=== PATIENT | male | born 1935 | race Asian ===

== ENCOUNTER 2017-07-07 11:58 | Outpatient (CLI) | payer OTHER | END 2017-07-07 13:00 | disposition home or self-care (01) | LOC: RAD 11:58 | DX: R06.02 Shortness of breath (principal) ==

== ENCOUNTER 2017-11-08 00:41 | Outpatient (CLI) | payer OTHER ==
[2017-11-09] MEDS ORDERED: GLIP10TA55 PO (01:32)
[2017-11-09] MEDS ORDERED: METFORMIN HCL500 M1 PO (01:32)
[2017-11-09] MEDS ORDERED: PRINIVIL10 MG PO (01:33)
[2017-11-09] MEDS ORDERED: SIMV20TA2 PO (01:33)
== END 2017-11-08 00:51 | disposition short-term general hospital (02) ==
LOC: AMB 00:41
DX: R07.89 Other chest pain (principal)
CPT/HCPCS: A0425; A0427

== ENCOUNTER 2017-11-09 01:02 | Observation (INO) | payer OTHER ==
[~2017-11-09] VITALS: Ht 175.3 cm; Wt 74.6 kg
[2017-11-09 00:58] VITALS: BP 160/72; TEMP 97.7
[2017-11-09 01:24] LABS: PLATELET COUNT 211 K/uL (142-355)
[2017-11-09] MEDS ORDERED: METFORMIN HCL500 M1 PO (01:32)
[2017-11-09] MEDS ORDERED: GLIP10TA55 PO (01:32)
[2017-11-09] MEDS ORDERED: SIMV20TA2 PO (01:33)
[2017-11-09] MEDS ORDERED: PRINIVIL10 MG PO (01:33)
[2017-11-09 01:37] LABS: POTASSIUM 3.9 mmol/L (3.6-5.2)
[2017-11-09 01:50] LABS: PARTIAL THROMBOPLASTIN TIME 20.1 SECONDS (24.5-33.6)
[2017-11-09 03:31] VITALS: BP 139/62; TEMP 98; Ht 175.3 cm; Wt 74.6 kg
[2017-11-09 03:59] VITALS: BP 139/62; TEMP 98
[2017-11-09 08:00] VITALS: BP 133/62; TEMP 98.6
[2017-11-09 12:00] VITALS: BP 164/76; TEMP 98.6
== END 2017-11-09 13:25 | disposition short-term general hospital (02) ==
LOC: ED 01:02 → MED/SURG 01:18
DX: I25.2 Old myocardial infarction (principal); R07.89 Other chest pain; I10 Essential (primary) hypertension; E11.9 Type 2 diabetes mellitus without complications; E78.00 Pure hypercholesterolemia, unspecified; I21.4 Non-ST elevation (NSTEMI) myocardial infarction
CPT/HCPCS: 36415; 80053; 82550; 82948; 83880; 84484; 85027; 85610; 85730; 93005; 94760; 96372; 96374; 99220; 99284; G0378; J1644; J2405

== ENCOUNTER 2017-11-09 13:32 | Outpatient (CLI) | payer OTHER ==
[~2017-11-09 13:32] MED LIST: GLIP10TA55 PO; METFORMIN HCL500 M1 PO; PRINIVIL10 MG PO; SIMV20TA2 PO
== END 2017-11-09 15:28 | disposition short-term general hospital (02) ==
LOC: AMB 13:32
DX: I25.2 Old myocardial infarction (principal); R07.89 Other chest pain; I10 Essential (primary) hypertension; E11.9 Type 2 diabetes mellitus without complications; E78.00 Pure hypercholesterolemia, unspecified; I21.4 Non-ST elevation (NSTEMI) myocardial infarction
CPT/HCPCS: A0425; A0427

== ENCOUNTER 2018-02-05 10:42 | Outpatient (CLI) | payer OTHER | END 2018-02-05 19:39 | disposition home or self-care (01) | LOC: LABW 10:42 | DX: E78.4 Other hyperlipidemia (principal) | CPT/HCPCS: 36415; 80061 ==

== ENCOUNTER 2020-03-02 09:23 | Emergency (ER) | payer OTHER ==
[~2020-03-02] VITALS: Ht 177.8 cm; Wt 81.6 kg
[2020-03-02 09:33] VITALS: TEMP 98.7
[2020-03-02 10:45] LABS: PLATELET COUNT 195 K/uL (142-355)
[2020-03-02 11:01] LABS: POTASSIUM 5.3 mmol/L (3.6-5.2)
[2020-03-02 11:56] VITALS: BP 110/80
== END 2020-03-02 11:56 | disposition home or self-care (01) ==
LOC: ED 09:23
PROVIDERS: Family Medicine
DX: M48.061 Spinal stenosis, lumbar region without neurogenic claudication (principal); M51.36 Other intervertebral disc degeneration, lumbar region
CPT/HCPCS: 80053; 81000; 85027; 99283

== ENCOUNTER 2020-03-29 01:36 | Emergency (ER) | payer OTHER ==
[~2020-03-29] VITALS: Ht 177.8 cm; Wt 81.6 kg
[2020-03-29 02:16] LABS: PLATELET COUNT 184 K/uL (142-355)
[2020-03-29 02:27] LABS: POTASSIUM 4.6 mmol/L (3.6-5.2); SODIUM 141 mmol/L (136-145)
[2020-03-29 04:19] VITALS: BP 149/80; TEMP 98.1
== END 2020-03-29 04:20 | disposition home or self-care (01) ==
LOC: ED 01:36
PROVIDERS: Emergency Medicine Emergency Medical Services
DX: E11.649 Type 2 diabetes mellitus with hypoglycemia without coma (principal); Z79.84 Long term (current) use of oral hypoglycemic drugs; Z79.82 Long term (current) use of aspirin; R90.82 White matter disease, unspecified
CPT/HCPCS: 36415; 80053; 82962; 84484; 85027; 93005; 96360; 96375; 99284; J7060

== ENCOUNTER 2020-09-03 15:39 | Outpatient (CLI) | payer OTHER | END 2020-09-03 22:19 | disposition home or self-care (01) | LOC: RAD 15:39 | PROVIDERS: ATTEND Nurse Practitioner Family | DX: M25.511 Pain in right shoulder (principal) ==

== ENCOUNTER 2022-06-27 23:08 | Emergency (ER) | payer OTHER ==
[~2022-06-27] VITALS: Ht 177.8 cm; Wt 81.6 kg
[2022-06-27 23:08] VITALS: TEMP 97.1
[2022-06-27] MEDS ORDERED: FERROUS GLUC324 M1 PO (23:37)
[2022-06-27] MEDS ORDERED: METFORMIN HCL500 M1 PO (23:38)
[2022-06-27] MEDS ORDERED: CLOPIDOGREL75 MG PO (23:39)
[2022-06-27] MEDS ORDERED: METO25TA4 PO (23:40)
[2022-06-27] MEDS ORDERED: GLIP10TA55 PO (23:41)
[2022-06-27] MEDS ORDERED: LISI20TA11 PO (23:42)
[2022-06-27] MEDS ORDERED: PRAVASTATIN10 MG PO (23:42)
[2022-06-27] MEDS ORDERED: OXYB5TAB56 PO (23:43)
[2022-06-27] MEDS ORDERED: ISOSORB MONO10 MG PO (23:43)
[2022-06-27] MEDS ORDERED: ASPIRIN 81 LOW81 MG PO (23:45)
[2022-06-27 23:51] LABS: PLATELET COUNT 172 K/uL (142-355)
[2022-06-28 00:11] LABS: POTASSIUM 5.3 mmol/L (3.6-5.2)
[2022-06-28 04:31] VITALS: BP 95/51
== END 2022-06-28 05:22 | disposition short-term general hospital (02) ==
LOC: ED 23:08
PROVIDERS: Internal Medicine
DX: R41.82 Altered mental status, unspecified (principal); Z11.52 Encounter for screening for COVID-19
CPT/HCPCS: 36415; 80053; 80307; 80320; 81000; 84484; 85027; 87635; 93005; 96360; 96361; 99285; U0003

== ENCOUNTER 2022-12-06 22:35 | Emergency (ER) | payer OTHER ==
[~2022-12-06] VITALS: Ht 177.8 cm; Wt 72.6 kg
[~2022-12-06 22:35] MED LIST changes: +ASPIRIN 81 LOW81 MG PO; +CLOPIDOGREL75 MG PO; +FERROUS GLUC324 M1 PO; +ISOSORB MONO10 MG PO; +LISI20TA11 PO; +METO25TA4 PO; +OXYB5TAB56 PO; +PRAVASTATIN10 MG PO
[2022-12-06 23:32] LABS: PLATELET COUNT 165 K/uL (142-355)
[2022-12-06 23:53] LABS: POTASSIUM 6.3 mmol/L (3.6-5.2)
[2022-12-07 04:12] LABS: POTASSIUM 6.3 mmol/L (3.6-5.2)
[2022-12-07 08:05] VITALS: BP 126/67; TEMP 97.2
== END 2022-12-07 08:05 | disposition short-term general hospital (02) ==
LOC: ED 22:35
PROVIDERS: Family Medicine
DX: R41.82 Altered mental status, unspecified (principal); E87.5 Hyperkalemia; K44.9 Diaphragmatic hernia without obstruction or gangrene
CPT/HCPCS: 36415; 80048; 80053; 80307; 81002; 82550; 82948; 83605; 85027; 93005; 96361; 96374; 96375; 96376; 99285; J1815; J3490; J7060

== ENCOUNTER 2023-01-03 22:30 | Emergency (ER) | payer OTHER ==
[~2023-01-03] VITALS: Ht 170.2 cm; Wt 69.4 kg
[2023-01-03 22:30] VITALS: TEMP 97.9
[2023-01-03 23:27] LABS: POTASSIUM 5.3 mmol/L (3.6-5.2)
[2023-01-04] MEDS ORDERED: GLIP10TA55 PO (00:04)
[2023-01-04] MEDS ORDERED: METF500T PO (00:04)
[2023-01-04] MEDS ORDERED: PRAVASTATIN10 MG PO (00:05)
[2023-01-04] MEDS ORDERED: QUETIAPINE50 MG PO (00:06)
[2023-01-04] MEDS ORDERED: GABA300C2 PO (00:06)
[2023-01-04] MEDS ORDERED: MEMA5TAB (00:07)
[2023-01-04] MEDS ORDERED: AMLODIPINE BESYLATE PO (00:07)
[2023-01-04 00:55] LABS: PLATELET COUNT 211 K/uL (142-355)
[2023-01-04 04:23] VITALS: BP 103/55
== END 2023-01-04 04:23 | disposition home or self-care (01) ==
LOC: ED 22:30
PROVIDERS: Family Medicine
DX: R11.2 Nausea with vomiting, unspecified (principal); B34.9 Viral infection, unspecified; R51.9 Headache, unspecified
CPT/HCPCS: 36415; 80053; 85027; 96361; 96365; 99284; J2550